=== PATIENT | female | born 1965 | race Caucasian/White ===

== ENCOUNTER 2016-12-13 19:52 | Emergency (ER) | payer OTHER ==
[~2016-12-13] VITALS: Ht 170.2 cm; Wt 61.2 kg
--- NOTE | 2016-12-13 19:56 | ED CRITICAL CARE ---
History of Present Illness General Chief Complaint: Cardiopulmonary Resuscitation Stated Complaint: BIBA CARDIAC ARREST Source: old records, EMS Exam Limitations: clinical condition Vital Signs & Intake/Output Vital Signs & Intake/Output . Allergies Coded Allergies: NO KNOWN ALLERGIES (05/11/12) Triage Nurses Notes Reviewed? yes Onset: Just prior to arrival Duration: unknown duration Timing: recent history Injury Environment: home Severity: severe Method of Injury: unknown, fall LMP (ages 10-50): post menopausal : No Patient currently breastfeeds: No HPI: Prior to admission patient was found by her significant other unresponsive not breathing in the shower. EMS called ACLS started for asystole. Blood was noted about the nose and mouth and when intubated suctioned through ETT. Past History Medical History Any Pertinent Medical History? see below for history Psychiatric: bipolar disease, opioid dependence, substance abuse (cocaine) Surgical History Surgical History: tubal ligation Psychosocial History What is your primary language Nepali Family History Hx Contributory? No Review of Systems Review of Systems Constitutional: Reports: see HPI, weakness. Eyes: Reports: no symptoms. Ears, Nose, Throat, Mouth: Reports: no symptoms. Respiratory: Reports: no symptoms. Cardiovascular: Reports: no symptoms. Gastrointestinal/Abdominal: Reports: no symptoms. Genitourinary: Reports: no symptoms. Musculoskeletal: Reports: no symptoms. Skin: Reports: no symptoms. Neurological/Psychological: Reports: see HPI, weakness. All Other Systems: Reviewed and Negative Comments Per family negative review of systems. Physical Exam Physical Exam General Appearance: intubated, severe distress, thin Head: active bleeding Eyes: Bilateral: abnormal EOM, abnormal pupil, other (fixed dilated). Ears, Nose, Throat, Mouth: widened nasal bridge Neck: normal inspection Respiratory: mechanical breath sounds bilaterally Cardiovascular: no heart sounds Peripheral Pulses: 0 carotid (R), 0 carotid (L), 0 femoral (R), 0 femoral (L) Gastrointestinal: soft Back: no vertebral tenderness Extremities: no ligament instability Neurologic/Psych: abnormal LEATHER STAKER II-XII, motor/sensory deficits Skin: pallor Core Measures ACS in differential dx? Yes ASA ordered for poss ACS? No-other contraindication CVA/TIA Diagnosis: No Severe Sepsis Present: No Septic Shock Present: No Progress Differential Diagnoses I considered the following diagnoses in my evaluation of the patient: overdose cva mi pe aaa arrhythmia Plan of Care: Pronounced 754 PM Initial ED EKG: none Rhythm Strip: asystole Comments: package completed. Patient is [place] case. Family notified. PMD notified. Departure Departure Time of Disposition: 1953 Disposition: Condition: Stable Clinical Impression Primary Impression: Cardiac asystole Referrals: NELIDA HARPER APRN (PCP/Family) Departure Forms: General Discharge Information Critical Care Note Critical Care Note Critical Care Time: 30-74 min (35)
== END 2016-12-13 19:54 | disposition expired ==
LOC: ERH 19:52
DX: I46.9 Cardiac arrest, cause unspecified (principal)
CPT/HCPCS: 1387; 94799; 99291